=== PATIENT | female | born 1930 | race Caucasian/White ===

== ENCOUNTER 2018-02-28 09:38 | Outpatient (CLI) | payer MEDICARE ==
[2018-02-28] VITALS (22 sets, daily range): BP systolic 71–152; BP diastolic 50–95
[~2018-02-28 09:38] MED LIST: PANT-47 PO
== END 2018-02-28 23:59 | disposition home or self-care (01) ==
LOC: CARD DIAG 09:38
PROVIDERS: ATTEND Internal Medicine Cardiovascular Disease
DX: R55 Syncope and collapse (principal); I10 Essential (primary) hypertension; K21.9 Gastro-esophageal reflux disease without esophagitis; Z98.890 Other specified postprocedural states; Z88.0 Allergy status to penicillin; Z88.5 Allergy status to narcotic agent; Z88.1 Allergy status to other antibiotic agents
CPT/HCPCS: 93660